=== PATIENT | female | born 1975 | race Hispanic/Latino ===

== ENCOUNTER → 2025-06-09 | Outpatient (CLI) | payer BC ==
[~2025-06-09] MED LIST: IOHEXOL 350 MG/ML 100ML INFUS..BTL IV ONE
--- NOTE | 2025-06-10 12:18 | HMCIMG ---
EXAM: CT Abdomen with and without IV contrast CLINICAL HISTORY: ADRENAL MASS PROTOCOL, DISORDER OF ADRENAL GLAND TECHNIQUE: Axial computed tomography images of the abdomen with and without intravenous contrast. CONTRAST: with and without intravenous contrast. COMPARISON: Study dated 05/31/18. FINDINGS: LUNG BASES: The lung bases appear clear. No pleural effusions are seen. LIVER: Hepatic steatosis. GALLBLADDER AND BILE DUCTS: Distended gallbladder. No calcified gallstones. No biliary ductal dilatation is evident. PANCREAS: Unremarkable. SPLEEN: 1.5 cm splenunculus. ADRENAL GLANDS: Bilateral adrenal glands appear normal in enhancement. No evidence of any abnormal enhancing lesion. KIDNEYS: Tiny 3.0 mm non-obstructive renal calculus in the left kidney. The kidneys appear within normal limits. There is no hydronephrosis or hydroureter. Thick-walled urinary bladder which may be due to under distention of cystitis. STOMACH AND BOWEL: Unremarkable appearance of the stomach and bowel. No evidence of bowel obstruction. No evidence suggesting enteritis or colitis. LYMPH NODES: No lymphadenopathy is evident. VASCULATURE: No evidence of abdominal aortic aneurysm. BONES: No aggressive appearing osseous lesion. No acute osseous pathology is evident. IMPRESSION: 1. Thick-walled urinary bladder which may be due to under distention of cystitis. 2. 3 mm non-obstructing left renal calculus. No additional urinary calculi. No hydronephrosis. 3. Bilateral adrenal glands appear normal, no focal lesion. 4. Distended gallbladder. No calcified gallstones. /Fowler
== END | disposition home or self-care (01) ==
LOC: RAH 08:50
PROVIDERS: ATTEND Nurse Practitioner Family
DX: K76.0 Fatty (change of) liver, not elsewhere classified (principal); N20.0 Calculus of kidney; K82.8 Other specified diseases of gallbladder; E27.9 Disorder of adrenal gland, unspecified
CPT/HCPCS: 74170; Q9967